=== PATIENT | male | born 1960 | race Asian ===

== ENCOUNTER 2017-02-24 17:56 | Outpatient (CLI) | payer OTHER | END 2017-02-24 17:57 | disposition home or self-care (01) | DX: M16.12 Unilateral primary osteoarthritis, left hip (principal) ==

== ENCOUNTER 2018-07-11 13:38 | Outpatient (CLI) | payer OTHER | END 2018-07-11 13:39 | disposition home or self-care (01) | LOC: DI 13:38 | PROVIDERS: ATTEND Family Medicine | DX: R06.02 Shortness of breath (principal); I34.0 Nonrheumatic mitral (valve) insufficiency | CPT/HCPCS: 93306 ==

== ENCOUNTER 2018-08-16 13:28 | Day surgery (SDC) | payer OTHER ==
[~2018-08-16 13:28] MED LIST: LIDO GARGLE 30 ML BOTTLE ONE
[2018-08-16] MEDS ORDERED: LACTATED RINGERS 1,000 ML IV ONE (13:30)
[2018-08-16] MEDS ORDERED: MIDAZOLAM 2 MG/2 ML VIAL IVP ONE (14:36)
[2018-08-16] MEDS ORDERED: fentaNYL 250 MCG/5 ML VIAL IVP ONE (14:36)
[2018-08-16] MEDS ORDERED: LIDO GARGLE 30 ML BOTTLE PO ONE (14:37)
[2018-08-16 16:16] VITALS: BP 125/80
== END 2018-08-16 13:29 | disposition home or self-care (01) ==
LOC: SDS 13:28
PROVIDERS: ATTEND Surgery
PROC: 0DJD8ZZ Inspection of Lower Intestinal Tract, Via Natural or Artificial Opening Endoscopic (ICD-10-PCS; 2018-08-16)
PROC: 0DB58ZX Excision of Esophagus, Via Natural or Artificial Opening Endoscopic, Diagnostic (ICD-10-PCS; principal; 2018-08-16 14:45)
PROC: 0DB78ZX Excision of Stomach, Pylorus, Via Natural or Artificial Opening Endoscopic, Diagnostic (ICD-10-PCS; 2018-08-16 14:45)
DX: D62 Acute posthemorrhagic anemia (principal); R19.5 Other fecal abnormalities; K44.9 Diaphragmatic hernia without obstruction or gangrene; K20.9 Esophagitis, unspecified; K29.71 Gastritis, unspecified, with bleeding; K57.31 Diverticulosis of large intestine without perforation or abscess with bleeding; K64.8 Other hemorrhoids; Z87.891 Personal history of nicotine dependence
CPT/HCPCS: 43239; 45378; 87081; A9270; J3010; J7120

== ENCOUNTER 2020-10-10 17:21 | Outpatient (CLI) | payer OTHER ==
[2020-10-10 18:33] LABS: ALBUMIN 4.3 g/dL (3.2-5.5); ALBUMIN/GLOBULIN RATIO 1.2 (1.0-2.2); BILIRUBIN,TOTAL 0.3 mg/dL (0.2-1.0); CREATININE 1.3 mg/dL (0.6-1.2); TOTAL PROTEIN 7.8 g/dL (6.7-8.2)
[2020-10-10] MEDS ORDERED: IOVERSOL 320 100 ML VIAL IVP ONE (18:45)
[2020-10-10] MEDS: IOVERSOL 320 50 ML VIAL PO ONE (18:51)
[2020-10-10] MEDS: IOVERSOL 320 100 ML VIAL IVP ONE (18:51)
--- NOTE | 2020-10-10 20:46 | CT Report ---
PROCEDURE: Abdomen/Pelvis W INDICATIONS: LLQ PAIN CONTRAST: IV CONTRAST: Optiray 320 ml: 100 PO CONTRAST: Optiray 320 ml50 TECHNIQUE: After the administration of oral and intravenous contrast, 5 mm thick sections acquired from the diap hragms to the symphysis. 5 mm thick coronal and sagittal reformats were acquired. For radiation dos e reduction, the following was used: automated exposure control, adjustment of mA and/or kV accordin g to patient size. COMPARISON: CT abdomen and pelvis 11/13/2013. FINDINGS: Image quality: Excellent. ABDOMEN: Lung bases: Lung bases are clear. Heart size is normal. Question of small hiatal hernia. Solid organs: Liver and spleen are normal in size and enhancement. Small cyst in the inferior right lobe and left lobe of the liver, unchanged. Gallbladder is unremarkable. Biliary system is non dilat ed. Pancreas enhances normally. No adrenal nodules. Kidneys demonstrate normal size and enhancemen t, without hydronephrosis. Peritoneum and bowel: Diverticulosis. Inflammatory change of the left lower quadrant. Small focus of fluid density at the superior margin, (6/20). No significant extraluminal gas. This portion of the si gmoid colon is thickened. No diverticulitis was seen slightly more superior on the CT from 2012. Ther e is prominent stool in the right colon. No small bowel obstruction. No ascites. Nodes and vessels: No retroperitoneal or mesenteric adenopathy by size criteria. Aorta and inferior vena cava are normal in size. Miscellaneous: No ventral hernias. PELVIS: Genitourinary: Bladder wall thickness is normal. Miscellaneous: Small fat-containing inguinal hernias. No adenopathy. Bones: No suspicious bony lesions. Mild scoliosis. Mild to moderate DDD. No vertebral body compress ion fractures. IMPRESSION: 1. Mild diverticulitis in the left lower quadrant. Tiny focus of extraluminal fluid which could signi fy developing abscess. -Recommend clinical surveillance. If the patient worsens consider follow-up CT abdomen and pelvis wit h IV contrast to exclude abscess development. 2. Sigmoid colon the left lower quadrant is thickened. -Recommend follow-up colonoscopy if not recently performed. Reviewed by: Morteza Martinez MD on 10/10/2020 8:44 PM PST Approved by: Morteza Martinez MD on 10/10/2020 8:44 PM PST Station ID: [id number]
== END 2020-10-10 17:22 | disposition home or self-care (01) ==
LOC: DI 17:21
PROVIDERS: ATTEND Nurse Practitioner Family
DX: K57.92 Diverticulitis of intestine, part unspecified, without perforation or abscess without bleeding (principal); R93.3 Abnormal findings on diagnostic imaging of other parts of digestive tract
CPT/HCPCS: 74177; 80053; Q9967

== ENCOUNTER 2022-02-10 12:29 | Outpatient (CLI) | payer OTHER ==
[2022-02-10] MEDS ORDERED: LIDOCAINE-MPF 1% 10 ML AMP ONE (12:45)
[2022-02-10] MEDS ORDERED: IOTHALAMATE MEGLUMINE 50 ML VIAL ONE (12:46)
[2022-02-10] MEDS ORDERED: GADOBUTROL 7.5 MMOL/7.5 ML VIAL ONE (12:46)
[2022-02-10] MEDS ORDERED: IOTHALAMATE MEGLUMINE 50 ML VIAL IVP ONE (13:42)
[2022-02-10] MEDS ORDERED: GADOBUTROL 7.5 MMOL/7.5 ML VIAL IVP ONE (13:43)
[2022-02-10] MEDS ORDERED: LIDOCAINE-MPF 1% 10 ML AMP SUBQ ONE (13:45)
--- NOTE | 2022-02-11 01:20 | XRAY Report ---
PROCEDURE: Arthrogram Needle Placement INDICATIONS: JOINT DISORDER, PAIN IN UNSPECIFIED HIP FLUOROSCOPY TIME: FLUORO TIME: 0.1 and NUMBER IMAGES: 2 TECHNIQUE: The indications, alternatives, benefits, risks, and complications of the procedure were explained to the patient. Written informed consent was obtained and placed in the chart. The hip was examined fl uoroscopically with the legs fixed in slight internal rotation, and a site for needle placement chose n for entry into the hip joint from an anterior approach. Care was taken to locate the common femora l artery and vein beforehand. The skin was prepped and draped in the usual fashion, and 1% Lidocaine infiltrated from skin down to joint capsule. A spinal needle was inserted into the joint, and a sma ll amount of iodinated contrast media injected to confirm intra-articular placement of the needle tip . This was followed by approximately 10 mL dilute solution of a gadolinium containing MR contrast ag ent. The needle was removed and a dressing was applied. The patient was given postprocedural instructions and sent to the MR suite for imaging. FINDINGS: A single fluoroscopic spot image demonstrates intra-articular location of injected iodinated contrast . IMPRESSION: Successful fluoroscopically guided administration of dilute Gadolinium solution into the hip joint fo r MR arthrogram. Reviewed by: Prabhu Maxwell MD on 02/11/2022 1:19 AM PDT Approved by: Prabhu Maxwell MD on 02/11/2022 1:19 AM PDT Station ID: [id number]
--- NOTE | 2022-02-11 09:27 | MRI Report ---
PROCEDURE: Arthrogram Hip LT INDICATIONS: JOINT DISORDER, PAIN IN UNSPECIFIED HIP CONTRAST: TECHNIQUE: After the administration of 10 mL of dilute intra-articular Gadolinium contrast, coronal STIR of the bony pelvis; coronal and oblique axial T1 spin echo with fat saturation, axial T2 fast spin echo with fat saturation, sagittal T1 spin echo with and without fat saturation of the involved hip. COMPARISON: None. FINDINGS: Image quality: Diagnostic. Bones and joints: Bone marrow of the pelvic ring and proximal femurs demonstrates normal overall sig nal. No bone contusions or fractures. No avascular necrosis of the femoral head. The visualized low er lumbar spine demonstrates a leftward curvature of the lumbar spine which is incompletely visualize d. There is mild to moderate degenerative disc disease within the visualized lower lumbar spine. The ligamental, neck, and labral plicae appear normal where visualized. Tendons and ligaments: The gluteus medius and minimus tendons appear intact, without associated musc le atrophy. The nearby proximal iliotibial band also appears intact. The iliopsoas tendon appears i ntact, without adjacent bursal fluid collections or evidence for impingement syndrome. The origin of the hamstring tendon is intact at the ischial tuberosity, as well as the associated sacrotuberous li gament. The straight and reflected heads of the rectus femoris muscle origin appear intact, as well as the conjoint tendon. The ligamentum teres appears intact where visualized. Labrum and cartilage: There is a linear tear in the anterosuperior labrum. No paralabral cysts. The alpha angle of the femur is increased at approximately 67 degrees. There is mild superior cartilage t hinning. Soft tissues: Visualized muscles demonstrate normal bulk and internal signal. Quadratus femoris mus dayana demonstrates no internal edema to suggest ischiofemoral impingement. The proximal sciatic neurov ascular bundle appears normal adjacent to the hamstring tendons. No free pelvic fluid. Bladder wall thickness is normal. This has bowel loops demonstrates colonic diverticulosis. There is mild segment al wall thickening within the sigmoid colon which may reflect sequelae of a mild colitis. IMPRESSION: 1. Tearing of the anterosuperior labrum. 2. Increased alpha angle with bony prominence of the femoral head-neck junction. Constellation of findings are suggestive of femoral acetabular impingement. Reviewed by: Prabhu Maxwell MD on 02/11/2022 9:26 AM PDT Approved by: Prabhu Maxwell MD on 02/11/2022 9:26 AM PDT Station ID: [id number]
== END 2022-02-10 12:30 | disposition home or self-care (01) ==
LOC: DI 12:29
PROVIDERS: ATTEND Orthopaedic Surgery Adult Reconstructive Orthopaedic Surgery
DX: S73.192A Other sprain of left hip, initial encounter (principal)
CPT/HCPCS: 27093; 73722; 77002; A9585; Q9961

== ENCOUNTER 2022-03-21 09:19 | Outpatient (CLI) | payer OTHER ==
[2022-03-21] MEDS ORDERED: LIDOCAINE-MPF 1% 10 ML AMP ONE (09:34)
[2022-03-21] MEDS ORDERED: TRIAMCINOLONE 40 MG/ML VIAL ONE (09:35)
[2022-03-21] MEDS ORDERED: IOTHALAMATE MEGLUMINE 50 ML VIAL ONE (09:45)
--- NOTE | 2022-03-21 13:00 | XRAY Report ---
PROCEDURE: Inj/Aspiration Major Joint INDICATIONS: OTHER SPECIFIED JOINT DISORDERS, LEFT HIP CONTRAST: Conray 60 FLUOROSCOPY DOSAGE: 95.16 mcg sq m FLUORO TIME: 0.2 TECHNIQUE: The indications, alternatives, benefits, risks, and complications of the procedure were explained to the patient. Written informed consent was obtained and placed in the chart. The patient was placed in an appropriate position on the fluoroscopy table, and a site was chosen for percutaneous access un osmani fluoroscopic guidance. The site was prepped and draped in a sterile fashion. Local anesthetic w as administered using a 1% lidocaine solution. A hypodermic or spinal needle was then used to access the symptomatic joint. Intra-articular location of the needle tip was confirmed by injecting a smal l amount of contrast, followed by steroid administration. The needle was then withdrawn, and a pina ge applied to the puncture site. FINDINGS: Joint injected: Left hip Medications injected: 2 mL of 40 mg/mL Kenalog and 0.5% Ropivacaine mixture. Patient's pain before injection: 3 out of 10. Patient's pain after injection: 1 out of 10. Complications: None. IMPRESSION: Successful fluoroscopically guided administration of steroid and anaesthetic solution into the left h ip joint. Reviewed by: Rocky Wooten MD on 03/21/2022 12:59 PM PDT Approved by: Rocky Wooten MD on 03/21/2022 12:59 PM PDT Station ID: [id number]
[2022-03-21] MEDS ORDERED: IOTHALAMATE MEGLUMINE 50 ML VIAL IVP ONE (13:11)
[2022-03-21] MEDS ORDERED: TRIAMCINOLONE 40 MG/ML VIAL IM ONE ×2 (13:22→13:23)
[2022-03-21] MEDS: LIDOCAINE-MPF 1% 10 ML AMP IM ONE ×2 (13:49→14:03)
[2022-03-21] MEDS: BUPIVACAINE 0.25% PF 10 ML VIAL IM ONE ×2 (13:52→14:02)
== END 2022-03-21 09:20 | disposition home or self-care (01) ==
LOC: DI 09:19
PROVIDERS: ATTEND Orthopaedic Surgery Adult Reconstructive Orthopaedic Surgery
DX: M25.852 Other specified joint disorders, left hip (principal)
CPT/HCPCS: 20610; 77002; Q9961

== ENCOUNTER 2022-11-02 11:04 | Outpatient (CLI) | payer OTHER | END 2022-11-02 11:05 | disposition home or self-care (01) | LOC: RT 11:04 | PROVIDERS: ATTEND Nurse Practitioner Family | DX: R00.2 Palpitations (principal) | CPT/HCPCS: 93005 ==

== ENCOUNTER 2024-07-22 15:23 | Emergency (ER) | payer OTHER ==
[2024-07-22 15:37] VITALS: O2SAT 100
[2024-07-22 15:49] LABS: BILIRUBIN,URINE NEGATIVE (NEGATIVE); GLUCOSE, URINE (UA) NEGATIVE (NEGATIVE); KETONES,URINE (UA) NEGATIVE (NEGATIVE); LEUKOCYTE ESTERASE, URINE NEGATIVE (NEGATIVE); NITRITE,URINE NEGATIVE (NEGATIVE); OCCULT BLOOD,URINE NEGATIVE (NEGATIVE); PH,URINE 6.5 PH (5.0-7.5); PROTEIN,URINE NEGATIVE (NEGATIVE); UROBILINOGEN,URINE 0.2 (NORMAL) E.U./dL (NORMAL)
[2024-07-22 15:51] LABS: CLARITY,URINE CLEAR (CLEAR)
[2024-07-22 16:01] LABS: BASOPHILS % (AUTO) 0.4 %; EOSINOPHILS # (AUTO) 0.2 10^3/uL (0.0-0.7); EOSINOPHILS % (AUTO) 1.8 %; HGB - HEMOGLOBIN 15.9 g/dL (14.0-18.0); LYMPHOCYTES # (AUTO) 2.5 10^3/uL (1.5-3.5); LYMPHOCYTES % (AUTO) 24.7 %; MEAN CORPUSCULAR HEMOGLOBIN 31.1 pg (27.0-31.0); MEAN CORPUSCULAR HGB CONC 34.6 g/dL (32.0-36.0); MEAN CORPUSCULAR VOLUME 89.8 fL (80.0-94.0); MEAN PLATELET VOLUME 9.2 fL (7.4-11.4); MONOCYTES # (AUTO) 0.9 10^3/uL (0.0-1.0); MONOCYTES % (AUTO) 9.4 %; NEUTROPHILS # (AUTO) 6.3 10^3/uL (1.5-6.6); NEUTROPHILS % (AUTO) 63.1 %; PLT - PLATELET COUNT 220 10^3/uL (130-450); RED BLOOD COUNT 5.12 10^6/uL (4.70-6.10); RED CELL DISTRIBUTION WIDTH 11.7 % (12.0-15.0)
--- NOTE | 2024-07-22 16:33 | ED Physician Documentation ---
PD HPI ABD PAIN - Stated complaint Stated Complaint: ABD PAIN - Chief complaint Chief Complaint: Abd Pain - History obtained from History obtained from: Patient - History of Present Illness Pain level max: 9 Pain level now: 5 Quality: Aching Location: LLQ Associated symptoms: No: Fever, Nausea, Vomiting, Hematemesis - Additional information Additional information: Patient is a 63-year-old male with left lower quadrant abdominal pain. He states that this started yesterday. Feels similar to prior episodes of diverticulitis. Had blood in the stool this morning. No fevers. No chills. No vomiting. No constipation. He states that his family has had issues with diverticulitis and his brother had a perforation in the past. Nothing seems to make it better or worse. Not on blood thinners. Not on antibiotics. No recent travel. He did eat at a neighborhood picnic yesterday. Feels similar to prior episodes of diverticulitis Review of Systems Constitutional: denies: Fever, Chills GI: denies: Vomiting, Diarrhea Skin: denies: Rash Musculoskeletal: denies: Neck pain, Back pain Neurologic: denies: Headache PD PAST MEDICAL HISTORY - Past Medical History Past Medical History: Yes Cardiovascular: None Respiratory: None Neuro: None Endocrine/Autoimmune: None GI: Diverticulitis, Other : None HEENT: Chronic vision loss Psych: Anxiety Musculoskeletal: Chronic back pain Derm: None - Past Surgical History Past Surgical History: Yes General: Appendectomy - Present Medications Home Medications: Ambulatory Orders Medication Instructions Recorded Confirmed Amox/Clav 875/125 [Augmentin] 1 each PO Q12H #20 tablet 06/20/22 06/24/22 Oxycodone HCl/Acetaminophen 1 each PO Q6H PRN #10 tablet 06/20/22 06/24/22 [Percocet 5-325 mg Tablet] Ciprofloxacin HCl [Cipro] 500 mg PO BID #20 tablet 06/24/22 Dicyclomine [Bentyl] 10 mg ORAL BID PRN 06/24/22 06/24/22 Oxycodone HCl/Acetaminophen 1 - 2 each PO Q6H PRN #20 tablet 06/24/22 [Percocet 5-325 mg Tablet] metroNIDAZOLE [Flagyl] 500 mg PO Q8H #30 tablet 06/24/22 Amox/Clav 875/125 [Augmentin] 1 each PO Q8H #30 tablet 07/22/24 - Allergies Allergies/Adverse Reactions: Allergies Allergy/AdvReac Type Severity Reaction Status Date / Time codeine Allergy Itching Verified 07/22/24 15:30 - Social History Does the pt smoke?: No Smoking Status: Never smoker Does the pt drink ETOH?: No Does the pt have substance abuse?: Yes - Immunizations Immunizations are current?: Yes PD ED PE NORMAL - Vitals Vital signs reviewed: Yes - General General: Alert and oriented X 3, No acute distress - HEENT HEENT: Moist mucous membranes - Neck Neck: Supple, no meningeal sign - Cardiac Cardiac: RRR, Strong equal pulses - Respiratory Respiratory: No respiratory distress, Clear bilaterally - Abdomen Abdomen: Soft, Non distended, Other (Tender to palpation left lower quadrant. No peritoneal signs) - Back Back: No CVA TTP - Derm Derm: Warm and dry - Neuro Neuro: Alert and oriented X 3 - Psych Psych: Normal mood, Normal affect Results - Vitals Vitals: Vital Signs - 24 hr 07/22/24 15:30 Temperature 36.7 C Heart Rate 92 Respiratory 16 Rate Blood Pressure 162/97 H O2 Saturation 100 Oxygen O2 Source Room air - Labs Labs: Laboratory Tests 07/22/24 07/22/24 07/22/24 15:36 15:55 15:55 WBC 10.0 RBC 5.12 Hgb 15.9 Hct 46.0 MCV 89.8 MCH 31.1 H MCHC 34.6 RDW 11.7 L Plt Count 220 MPV 9.2 Neut # (Auto) 6.3 Lymph # (Auto) 2.5 [place] # (Auto) 0.9 Eos # (Auto) 0.2 Baso # (Auto) 0.0 Absolute Nucleated RBC 0.00 Nucleated RBC % 0.0 Sodium 139 Potassium 3.9 Chloride 104 Carbon Dioxide 29 Anion Gap 6.0 BUN 14 Creatinine 1.3 Estimated GFR (MDRD) 56 L Glucose 100 Calcium 10.0 Total Bilirubin 0.4 AST 19 ALT 17 Alkaline Phosphatase 77 Total Protein 7.0 Albumin 4.3 Globulin 2.7 Albumin/Globulin Ratio 1.6 Lipase 78 Urine Color YELLOW Urine Clarity CLEAR Urine pH 6.5 Ur Specific [place] <=1.005 Urine Protein NEGATIVE Urine Glucose (UA) NEGATIVE Urine Ketones NEGATIVE Urine Occult Blood NEGATIVE Urine Nitrite NEGATIVE Urine Bilirubin NEGATIVE Urine Urobilinogen 0.2 (NORMAL) Ur Leukocyte Esterase NEGATIVE Ur Microscopic Review NOT INDICATED Urine Culture Comments NOT INDICATED - Rads (name of study) CT abdomen pelvis Relevant Findings:: Final report received, See rad report PD Medical Decision Making - ED course Complexity details: reviewed results, re-evaluated patient, considered differential, d/w patient ED course: Patient is a 63-year-old male with diverticulitis on CT scan. No evidence of perforation or abscess. There is luminal narrowing, recommend colonoscopy. Patient was informed of this finding and the need for follow-up. He states he last had a colonoscopy about 3 to 4 years ago and it was reportedly normal. Given Augmentin. Declines pain medication here or for home. No fevers or chills. No evidence of sepsis. Discussed risk and benefits of antibiotic therapy, due to his recurrent diverticulitis, he would like antibiotics. Patient is very well-appearing, nontoxic. Patient counseled regarding signs and symptoms for which I believe and urgent re-evaluation would be necessary. Patient with good understanding of and agreement to plan and is comfortable going home at this time This document was made in part using voice recognition software. While efforts are made to proofread this document, sound alike and grammatical errors may occur. Departure - Departure Disposition: 01 Home, Self Care Clinical Impression: Diverticulitis Condition: Good Instructions: ED Diverticulitis Follow-Up: your,doctor in 1 week [Other] Prescriptions: Amox/Clav 875/125 [Augmentin] 1 each PO Q8H #30 tablet Comments: Your prescription was sent to [facility] in [place]. Please take all antibiotics until gone. Please return if you worsen. As we discussed you do have diverticulitis on CT scan. There is also narrowing of your lumen in your colon, it is recommended you have a colonoscopy after treatment. EXAM: [id number] CT/ABPEW ([id number]) PROCEDURE: Abdomen/Pelvis W INDICATIONS: LLQ abd pain CONTRAST: omni, 100 TECHNIQUE: After the administration of intravenous contrast, a CT scan of the abdomen and pelvis was performed. Images were recorded and evaluated at appropriate window settings. Reformats: coronal and sagittal. For radiation dose reduction, the following was used: automated exposure control, adjustment of mA and/or kV according to patient size. COMPARISON: CT abdomen pelvis 06/24/2022 FINDINGS: Image quality: Diagnostic. Lower chest: Unremarkable. Liver: No solid mass. Gallbladder: Unremarkable. Biliary tree: No intrahepatic or extrahepatic dilation, accounting for age. Spleen: No splenomegaly. Pancreas: No pancreatic ductal dilation. Adrenals: No adrenal nodule. Kidneys and ureters: No hydronephrosis. No renal cystic lesion which requires follow up. No solid mass. Stomach, bowel and peritoneum: There is marked thickening of the descending and sigmoid colon with diverticula. Mild inflammatory changes present. Prominent luminal narrowing. No abscess. No pathologic free fluid. Lymph nodes: No central or retroperitoneal adenopathy. Vessels: No infrarenal aortic aneurysm. Patent portal vein. PELVIS Reproductive organs: Unremarkable. Bladder: No abnormal wall thickening, accounting for underdistention. Pelvic lymph nodes: No pelvic adenopathy by size criteria. Bones: No aggressive osseous abnormality. Other: Bilateral fat-containing inguinal hernias. IMPRESSION: Prominent thickening of the descending and sigmoid colon with inflammatory change and diverticula most consistent with colitis secondary to diverticulitis. However, recommend interval follow-up after appropriate therapy to document resolution and exclude presence of underlying mass, particularly given prominent luminal narrowing. Forms: PCP List
[2024-07-22 16:35] LABS: ALBUMIN 4.3 g/dL (3.2-5.5); ALBUMIN/GLOBULIN RATIO 1.6 (1.0-2.2); BILIRUBIN,TOTAL 0.4 mg/dL (0.2-1.0); CREATININE 1.3 mg/dL (0.6-1.3); POTASSIUM 3.9 mmol/L (3.5-4.5)
[2024-07-22] MEDS ORDERED: iohexoL-300 100 ML VIAL ONE (16:52)
--- NOTE | 2024-07-22 17:33 | CT Report ---
PROCEDURE: Abdomen/Pelvis W INDICATIONS: LLQ abd pain CONTRAST: omni, 100 TECHNIQUE: After the administration of intravenous contrast, a CT scan of the abdomen and pelvis was performed. Images were recorded and evaluated at appropriate window settings. Reformats: coronal and sagittal. F or radiation dose reduction, the following was used: automated exposure control, adjustment of mA and /or kV according to patient size. COMPARISON: CT abdomen pelvis 06/24/2022 FINDINGS: Image quality: Diagnostic. Lower chest: Unremarkable. Liver: No solid mass. Gallbladder: Unremarkable. Biliary tree: No intrahepatic or extrahepatic dilation, accounting for age. Spleen: No splenomegaly. Pancreas: No pancreatic ductal dilation. Adrenals: No adrenal nodule. Kidneys and ureters: No hydronephrosis. No renal cystic lesion which requires follow up. No solid mas s. Stomach, bowel and peritoneum: There is marked thickening of the descending and sigmoid colon with di verticula. Mild inflammatory changes present. Prominent luminal narrowing. No abscess. No pathologic free fluid. Lymph nodes: No central or retroperitoneal adenopathy. Vessels: No infrarenal aortic aneurysm. Patent portal vein. PELVIS Reproductive organs: Unremarkable. Bladder: No abnormal wall thickening, accounting for underdistention. Pelvic lymph nodes: No pelvic adenopathy by size criteria. Bones: No aggressive osseous abnormality. Other: Bilateral fat-containing inguinal hernias. IMPRESSION: Prominent thickening of the descending and sigmoid colon with inflammatory change and diverticula mos t consistent with colitis secondary to diverticulitis. However, recommend interval follow-up after ap propriate therapy to document resolution and exclude presence of underlying mass, particularly given prominent luminal narrowing. Reviewed by: Abbie Waller MD on 07/22/2024 5:32 PM PDT Approved by: Abbie Waller MD on 07/22/2024 5:32 PM PDT Station ID: [id number]
[2024-07-22] MEDS: AMOX/CLAV 875 MG/125 MG TABLET PO STA (17:50)
[2024-07-22 18:15] VITALS: BP 143/88
[2024-07-22] MEDS: iohexoL-300 100 ML VIAL IVP ONE (18:22)
== END 2024-07-22 18:13 | disposition home or self-care (01) ==
LOC: ED 15:23
DX: K57.92 Diverticulitis of intestine, part unspecified, without perforation or abscess without bleeding (principal)
CPT/HCPCS: 36415; 74177; 80053; 81003; 83690; 85025; 99283; 99284; A9270; Q9967; 81001; 87086